=== PATIENT | female | born 1995 | race African-American/Black ===

== ENCOUNTER 2016-11-08 19:04 | Emergency (ER) | payer MEDICAID, OTHER ==
[~2016-11-08] VITALS: Ht 165.1 cm; Wt 90.9 kg
[~2016-11-08 19:04] MED LIST: IBUP600 PO; LORTA5 PO; PERI8.6T PO
[2016-11-08 19:08] VITALS: BP 133/92; PULSE 86; RESP 14; TEMP 98.8; O2SAT 98
--- NOTE | 2016-11-08 19:43 | PD ---
HPI Chief Complaint: ENT Complaint Time Seen by Provider: 19:36 Travel History International Travel<30 days: No Contact w/Intl Traveler<30days: No Traveled to known affect area: No History of Present Illness HPI This is a 21-year-old female who presents for evaluation of sore throat. Symptoms started 3 days ago. It hurts to swallow. Associated with sneezing. She denies any cough or congestion, fevers or chills, rash or recent travel. She does note that symptoms started after drinking some red wine 3 days ago. She has been using [id number] throat spray lozenges for symptom relief. No other complaints. PFSH Past Medical History ?: Not Social History Alcohol Use: No Tobacco Use: No Allergies-Medications (Allergen,Severity, Reaction): Coded Allergies: Nasonex (Unverified Allergy, Mild, 11/08/16) Uncoded Allergies: FLONASE (Allergy, Severe, Swelling, 03/11/14) NASOVEX (Allergy, Severe, Swelling, 03/11/14) Reported Meds & Prescriptions Reported Meds & Active Scripts Active No Active Prescriptions or Reported Medications Review of Systems General / Constitutional: No: Fever, Chills HENT: Positive: Sore Throat, No: Rhinitis, Rhinorrhea, Congestion Respiratory: No: Cough Skin: No Rash, No Itching Physical Exam Narrative GENERAL: Well-developed well-nourished female in no acute distress SKIN: Warm and dry. HEAD: Atraumatic. Normocephalic. EYES: Pupils equal and round. No scleral icterus. No injection or drainage. ENT: No nasal bleeding or discharge. Mucous membranes pink and moist. There is mild oropharyngeal erythema, some exudate formation on the left. Uvula midline with no mass effect. No stridor or drooling. NECK: Trachea midline. No JVD. Mild tender anterior cervical lymphadenopathy. CARDIOVASCULAR: Regular rate and rhythm. No murmur appreciated. RESPIRATORY: No accessory muscle use. Clear to auscultation. Breath sounds equal bilaterally. Data Data Last Documented VS Vital Signs Date Time Temp Pulse Resp B/P Pulse Ox O2 Delivery O2 Flow Rate FiO2 11/08/16 19:54 22 11/08/16 19:08 98.8 86 133/92 98 Room Air Orders Group A Rapid Strep Screen (11/08/16 19:40) Ondansetron Odt (Zofran Odt) (11/08/16 19:45) Ibuprofen (Motrin) (11/08/16 19:45) Strep Culture (Group A) (11/08/16 19:52) [facility] Medical Decision Making Medical Screen Exam Complete: Yes Emergency Medical Condition: Yes Medical Record Reviewed: Yes Differential Diagnosis Pharyngitis, tonsillitis, peritonsillar abscess, infectious mononucleosis, herpangina, epiglottitis, retropharyngeal abscess, angioedema Narrative Course 21-year-old female presents with 3 days of sore throat. Examination reveals some tonsillar erythema with mild exudate formation and mild anterior cervical lymphadenopathy. She is nontoxic in appearance. She'll be given ibuprofen and Zofran. Rapid strep screen has been ordered. Rapid strep screen is negative and she feels improved after the administration of ibuprofen. She appears to have a viral pharyngitis. She is stable for discharge. Diagnosis Primary Impression: Pharyngitis Qualified Code: J02.9 - Pharyngitis, unspecified etiology Additional Instructions: Stay well-hydrated and well-nourished. Take [id number] Tylenol or Motrin for discomfort per dosing instructions on the bottle. Follow-up with primary care physician as needed and return for any emergent medical conditions. Med/Other Pt SpecificInfo: No Change to Meds Scripts No Active Prescriptions or Reported Meds Disposition: 01 DISCHARGE HOME Condition: Stable Yovany Beal Nov 08, 2016 19:43
[2016-11-08] MEDS ORDERED: ONDANSETRON ODT 4 MG TAB PO ONE (19:45)
[2016-11-08] MEDS ORDERED: IBUPROFEN 800 MG TAB PO ONE (19:45)
== END 2016-11-08 21:19 | disposition home or self-care (01) ==
LOC: NEPK 19:04
DX: J02.9 Acute pharyngitis, unspecified (principal)
CPT/HCPCS: 87081; 87880; 99283